=== PATIENT | female | born 1980 | race Caucasian/White ===

== ENCOUNTER 2021-07-05 14:20 | Emergency (ER) | payer OTHER ==
[~2021-07-05] VITALS: Ht 167.6 cm; Wt 54.4 kg
[~2021-07-05 14:20] MED LIST: ALPRAZOLAM PO; CIPROFLOXACIN500 M1 PO; NOHOMEMEDICATIONS; NORCO 5-325 TA1 EACH PO; PERCOCET PO; PHENERGAN 25 MG25 M1 PO; PROZAC40 MG PO; WELLBUTRIN XL150 M1 PO; ZOFRAN 4 MG ORAL4 MG PO; ZYPREXA 10 MG T10 MG PO
[2021-07-05] MEDS ORDERED: XARELTO20 MG PO (14:29)
[2021-07-05] MEDS ORDERED: PHENERGAN 25 MG25 M1 PO (14:29)
[2021-07-05 15:16] LABS: HEMATOCRIT 44.2 % (37.0-47.0); HEMOGLOBIN 15.1 gm/dL (12.0-15.0); MCHC 34.1 g/dL (28.0-37.0); MCV 99.7 fL (80.0-100.0); PLATELET COUNT 230 thou/uL (150-400); RBC 4.44 mil/uL (4.20-5.00); WBC 8.4 thou/uL (4.0-11.0)
[2021-07-05 15:19] LABS: URINE BILIRUBIN NEGATIVE (Negative); URINE BLOOD NEGATIVE (Negative); URINE CLARITY CLEAR; URINE COLOR YELLOW; URINE GLUCOSE-RANDOM* NEGATIVE (Negative); URINE KETONES NEGATIVE (Negative); URINE LEUKOCYTES-REFLEX NEGATIVE (Negative); URINE NITRITE-REFLEX NEGATIVE (Negative); URINE PROTEIN (DIPSTICK) NEGATIVE (Negative); URINE SPECIFIC GRAVITY >= 1.030 (1.005-1.035)
[2021-07-05 15:19] LABS: ANION GAP 7 mmol/L (7-16); BUN 12 mg/dL (7-18); CALCIUM 8.5 mg/dL (8.5-10.1); CHLORIDE 105 mmol/L (98-107); CO2 27 mmol/L (21-32); CREATININE 0.9 mg/dL (0.6-1.0); GLUCOSE 101 mg/dL (74-106); POTASSIUM 3.8 mmol/L (3.5-5.1); SODIUM 139 mmol/L (136-145)
[2021-07-05 15:25] LABS: ALBUMIN 2.9 g/dL (3.4-5.0); DIRECT BILIRUBIN < 0.1 mg/dL (<0.1-0.2); LIPASE 58 U/L (73-393); SGOT 18 U/L (15-37); SGPT 19 U/L (30-65); TOTAL BILIRUBIN 0.4 mg/dL (0.2-1.0); TOTAL PROTEIN 6.5 g/dL (6.4-8.2)
[2021-07-05 15:42] LABS: AMP/METHAMP Negative (Negative); BARBITURATES Negative (Negative); BENZODIAZEPINES POSITIVE (Negative); COCAINE Negative (Negative); METHADONE Negative (Negative); OPIATES POSITIVE (Negative); PCP Negative (Negative)
[2021-07-05 15:56] LABS: ABSOLUTE NEUTROPHILS 6.3 thou/uL (1.4-8.2); ATYPICAL LYMPHS 1 %
[2021-07-05 17:18] VITALS: BP 97/53
[2021-07-05] MEDS ORDERED: NORCO5 PO ×2 (17:41→17:52)
--- NOTE | 2021-07-07 07:30 | EKG ---
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
== END 2021-07-05 18:49 | disposition home or self-care (01) ==
LOC: ER 14:20
PROVIDERS: Emergency Medicine
DX: K52.9 Noninfective gastroenteritis and colitis, unspecified (principal); Z20.822 Contact with and (suspected) exposure to COVID-19; R10.84 Generalized abdominal pain; R94.6 Abnormal results of thyroid function studies; Z90.49 Acquired absence of other specified parts of digestive tract; Z90.89 Acquired absence of other organs; Z79.899 Other long term (current) drug therapy; Z88.6 Allergy status to analgesic agent; Z88.9 Allergy status to unspecified drugs, medicaments and biological substances; Z88.2 Allergy status to sulfonamides